=== PATIENT | male | born 1955 | race Caucasian/White ===

== ENCOUNTER → 2019-10-16 10:55 | Outpatient (CLI) | payer BC, SELFPAY ==
--- NOTE | 2019-10-16 11:03 | XR_ITS ---
PROCEDURE: XR HIP RT 2-3V W/PELVIS CLINICAL INDICATION: RT HIP PAIN Severe right hip COMPARISON: No exams were available for comparison FINDINGS: There are severe osteoarthritic changes of the right hip with osteosclerosis of the femoral head and dysplastic changes of the femoral head with flattening of the femoral head laterally. There is some minimal lateral subluxation of the femur with lucency noted in the central and inferior aspect of the femoral head consistent with subchondral cystic changes. No acute fracture. There is sclerosis of the acetabular roof and right femoral head. IMPRESSION: Severe osteoarthritis of the right hip with dysplastic changes of the femoral head and mild lateral subluxation with subarticular cystic changes. Dictated by: Valdez Valentine MD 10/16/2019 17:45 Electronically signed by Valdez Valentine MD in [place] 10/16/2019 17:45
== END ==
PROVIDERS: PCP Family Medicine; Visit Provider Family Medicine
DX: M25.551 Pain in right hip (principal)
CPT/HCPCS: 73502

== ENCOUNTER → 2021-02-11 12:24 | Outpatient (CLI) | payer BC, SELFPAY ==
[2021-02-11 14:55] LABS: Basophils % 0.1 % (0.1-2.0); Hematocrit 33.9 % (42.0-52.0); Hemoglobin 11.7 g/dL (14.1-18.0); Lymphocytes # 0.6 K/mm3 (0.7-4.5); Mean Corpuscular HGB Conc 34.7 g/dL (31.8-35.4); Mean Corpuscular Hemoglobin 31.2 pg (27.0-31.2); Mean Corpuscular Volume 89.9 fl (80-94); Monocytes # 0.2 K/mm3 (0.1-1.0); Monocytes % 3.3 % (1.7-9.3); Neutrophils % 84.6 % (37.0-80.0); Platelet Count 98 K/mm3 (142-424); Red Blood Count 3.77 M/mm3 (4.60-6.20); Red Cell Distribution Width 13.8 % (11.5-17.5); White Blood Count 4.7 K/mm3 (4.8-10.8)
== END ==
PROVIDERS: PCP Family Medicine; Visit Provider Family Medicine
DX: Z20.822 Contact with and (suspected) exposure to COVID-19 (principal); U07.1 COVID-19
CPT/HCPCS: 36415; 85025; U0003